=== PATIENT | male | born 1950 | race Caucasian/White ===

== ENCOUNTER 2019-04-10 18:48 | Emergency (ER) | payer BC, MEDICARE ==
[2019-04-10 19:02] VITALS: BP 126/73
[2019-04-10] MEDS ORDERED: TETANUS/DIPHTHERIA/PERTUSSIS 0.5 ML SYRINGE IM ONE (19:33)
--- NOTE | 2019-04-10 19:37 | ED Physician Documentation ---
History of Present Illness - Stated complaint Stated Complaint: RT FINGER VS DISPOSAL - Chief complaint Chief Complaint: Laceration - Additonal information Additional information: This is a 68-year-old male who presents after laceration to his right middle finger. Patient was in the kitchen and his accidentally bumped the garbage disposal switch, he pulled his finger out of the sink quickly but he did suffer a laceration to the nail on his right middle finger. He has not had tetanus booster in 25 years. He denies trauma elsewhere. He denies weakness or numbness. Review of Systems Constitutional: denies: Fever Skin: reports: Laceration (s) Immunocompromised: denies: Immunocompromised PD PAST MEDICAL HISTORY - Past Medical History Past Medical History: Yes Cardiovascular: High cholesterol Respiratory: None Endocrine/Autoimmune: None GI: None : None HEENT: None Psych: None Musculoskeletal: None Derm: Eczema - Past Surgical History Past Surgical History: No - Present Medications Home Medications: Ambulatory Orders Medication Instructions Recorded Confirmed Simvastatin 10/03/13 10/03/13 - Allergies Allergies/Adverse Reactions: Allergies Allergy/AdvReac Type Severity Reaction Status Date / Time Penicillins Allergy Unknown Unknown Verified 04/10/19 18:56 - Social History Does the pt smoke?: No Smoking Status: Never smoker Does the pt drink ETOH?: Yes Does the pt have substance abuse?: No - Immunizations Immunizations are current?: Yes - POLST Patient has POLST: No PD ED PE NORMAL - Vitals Vital signs reviewed: Yes - General General: Alert and oriented X 3, No acute distress - HEENT HEENT: Atraumatic - Cardiac Cardiac: RRR - Respiratory Respiratory: No respiratory distress - Abdomen Abdomen: Non distended - Extremities Extremities: Other (The right middle finger has a 1 cm laceration across the mid nail with a small amount of oozing. There is no crossing into the proximal nail matrix. No gross deformity. Sensation distally is intact. Remainder the hand is atraumatic and nontender) - Neuro Neuro: Alert and oriented X 3 - Psych Psych: Normal mood, Normal affect Results - Vitals Vitals: Vital Signs - 24 hr 04/10/19 18:56 Temperature 36.5 C Heart Rate 68 Respiratory 16 Rate Blood Pressure 126/73 O2 Saturation 98 Oxygen O2 Source Room air - Rads (name of study) XR right fingers Radiology: Other (No acute fracture or dislocation, no radioopaque foreign body) Procedures - Laceration (location) Finger right Distal Length in cm: 1 Wound type: Linear Neurovascular status: Sensory intact, Motor intact, Vascular intact Wound Preparation: Irrigated copiously NS Skin layer closure: Dermabond Other: Patient tolerated well, No complications, Neurovascular intact, Dressing applied, Tetanus booster given Complexity: Simple PD MEDICAL DECISION MAKING - ED course Complexity details: considered differential (Laceration, fracture, nailbed injury, dislocation) ED course: Pt presents with laceration to the distal right middle finger nail. finger is neurovascularly intact and the laceration is shallow, extending just through the nail. It does not involve the nail fold or the matrix. After thorough cleaning it and discussing options of nail removal or skin glue, we decided on skin glue since the laceration is thin, small, and does not involve the fold or growth matrix. After repair a bandage was applied, wound care and follow up instr uctions reviewed. Tdap was updated. Patient was discharged in the care of his . Departure - Departure Disposition: 01 Home, Self Care Clinical Impression: Laceration Condition: Good Instructions: ED Laceration Ext Skin Glue Follow-Up: Ruby Tucker ARNP [Primary Care Provider] - As Needed Comments: You were seen today because you lacerated your nail. We do not see signs of any broken bones in the finger. Please keep a simple bandage over the nail, it is okay to run water over it and to wash your hands, but try not to scrub at the area. If you develop signs of infection such as increasing swelling of your finger or redness streaking up your arm return to the emergency department. The skin glue will naturally slough off over time. You may take Tylenol for discomfort and ice the area if needed. Discharge Date/Time: 04/10/19 21:25
--- NOTE | 2019-04-10 20:21 | XRAY Report ---
Reason: Garbage disposal laceration to distal middle fing Procedure Date: 04/10/2019 Accession Number: [id number] / [id number] Procedure: XR - Finger(s) RT CPT Code: FULL RESULT: EXAM: RIGHT THIRD DIGIT RADIOGRAPHY EXAM DATE: 04/10/2019 07:47 PM. CLINICAL HISTORY: Garbage disposal laceration to distal middle fing. COMPARISON: None. TECHNIQUE: 3 views. FINDINGS: Bones: Normal. No fracture or bone lesion. Joints: Normal. No subluxations. Soft Tissues: Normal. No soft tissue swelling. IMPRESSION: No acute fractures or malalignment. [facility]
== END 2019-04-10 21:25 | disposition home or self-care (01) ==
LOC: ED 18:48
DX: S61.312A Laceration without foreign body of right middle finger with damage to nail, initial encounter (principal); W31.89XA Contact with other specified machinery, initial encounter; Y93.E9 Activity, other interior property and clothing maintenance; Y92.000 Kitchen of unspecified non-institutional (private) residence as the place of occurrence of the external cause; Z23 Encounter for immunization
CPT/HCPCS: 12001; 73140; 90471

== ENCOUNTER 2020-06-24 08:08 | Outpatient (CLI) | payer MEDICARE, OTHER ==
[2020-06-24] MEDS ORDERED: GADOBUTROL 7.5 MMOL/7.5 ML VIAL ONE (08:54)
[2020-06-24] MEDS ORDERED: GADOBUTROL 7.5 MMOL/7.5 ML VIAL IVP ONE (11:28)
--- NOTE | 2020-06-30 05:40 | MRI Report ---
PROCEDURE: Abdomen W/WO INDICATIONS: LESION OF LIVER CONTRAST: IV CONTRAST: Gadavist ml: 7 TECHNIQUE: Coronal ultra fast SE, axial 2D spoiled GE in- and [id number]; axial breath-hold T2 fast SE. Dynam ic axial ultra fast GE during the administration of contrast; post-contrast coronal ultra fast GE or 2D spoiled GE with fat saturation from the hepatic dome to the iliac crests. Optional diffusion weig hted imaging and ADC may be performed. COMPARISON: Prior chest CT with contrast 10/03/2013 which includes a significant portion of the liver. FINDINGS: Image quality: Excellent. Lung bases: No basal pleural effusions. Heart size is normal. Solid organs: Liver and spleen are normal in size and enhancement. Note is made of 2 sharply demarc ated rounded slightly lobulated structures within the right posterior hepatic segment inferiorly with imaging characteristics representing cysts. These measure up to 1.5 x 1.7 cm at the inferior margin of the right posterior hepatic segment, subcapsular, and also more superiorly within the liver parenc hyma at the axial level of the upper third of the right kidney, also subcapsular, and showing no evid ence of rim or internal enhancement, for each. Gallbladder Biliary system is non dilated. Pancr eas is normal in morphology. No adrenal nodules. Both kidneys demonstrate normal size and enhanceme nt, without hydronephrosis. Nodes and vessels: No retroperitoneal or mesenteric adenopathy by size criteria. Aorta and inferior vena cava are normal in size. Bowel and peritoneum: Unenhanced bowel loops are normal in caliber. No free fluid. Bones and soft tissues: No ventral hernias. Bone marrow is normal in overall signal. IMPRESSION: Benign appearing hepatic cysts are present each having a maximal dimension of approximately 1.7 cm wi thin the right posterior hepatic segment inferiorly at and below the level of the upper third of the right kidney. No additional liver abnormalities seen. No follow-up is recommended. Note: The most recent available comparison study that includes a portion of the liver is 10/03/2013, CT pulmonary angiogram. If there is an outside examination that is more recent and has raised concern f or some abnormality within the liver I would be happy to review that case and generate an addendum to this report. Reviewed by: Richard Mcadams MD on 06/29/2020 5:01 PM [facility] Approved by: Richard Mcadams MD on 06/29/2020 5:01 PM [facility] Station ID: [id number]
== END 2020-06-24 08:09 | disposition home or self-care (01) ==
LOC: DI 08:08
PROVIDERS: ATTEND Registered Nurse
DX: K76.89 Other specified diseases of liver (principal)
CPT/HCPCS: 74183; A9585

== ENCOUNTER 2020-06-27 13:54 | Outpatient (CLI) | payer MEDICARE, OTHER ==
--- NOTE | 2020-06-27 16:16 | XRAY Report ---
PROCEDURE: Finger(s) LT INDICATIONS: PAIN IN LEFT FINGER TECHNIQUE: PA view of the hand and 2 views of the left small finger obtained. COMPARISON: None. FINDINGS: Bones: There is a comminuted, minimally displaced fracture of the shaft of the fifth proximal phalanx . On lateral view, the fracture appears to have increased displacement with overriding of fracture fr agments. No definite intra-articular extension is seen. No additional fracture is seen. Degenerative changes are seen at the first carpometacarpal joint and the triscaphe joint. No suspicious bony lesio ns. Soft tissues: No suspicious soft tissue calcifications. Soft tissue edema is seen in the fifth digi t. IMPRESSION: Comminuted, displaced fracture of the shaft of the fifth proximal phalanx with overriding of fracture fragments seen on lateral view. Reviewed by: Angel Ashton MD on 06/27/2020 4:15 PM PST Approved by: Angel Ashton MD on 06/27/2020 4:15 PM PST Station ID: [id number]
== END 2020-06-27 23:59 | disposition home or self-care (01) ==
LOC: DI.S 13:54
PROVIDERS: ATTEND Physician Assistant Medical
DX: S62.617A Displaced fracture of proximal phalanx of left little finger, initial encounter for closed fracture (principal)

== ENCOUNTER 2022-01-31 08:57 | Outpatient (CLI) | payer OTHER, MEDICARE ==
[2022-01-31 14:55] LABS: ALBUMIN 3.9 g/dL (3.2-5.5); ALBUMIN/GLOBULIN RATIO 1.3 (1.0-2.2); ALKALINE PHOSPHATASE 47 IU/L (42-121); ALT ALANINE AMINOTRANSFERASE 18 IU/L (10-60); AST ASPARTATE AMINOTRANSFERASE 26 IU/L (10-42); BILIRUBIN,TOTAL 0.7 mg/dL (0.2-1.0); BUN - BLOOD UREA NITROGEN 18 mg/dL (6-20); CALCIUM 9.2 mg/dL (8.5-10.3); CARBON DIOXIDE - CO2 30 mmol/L (21-32); CHLORIDE 101 mmol/L (101-111); CHOL/HDL RATIO 5.5 (<5.0); CHOLESTEROL 263 mg/dL; GFR - MDRD 74 (>89); GLUCOSE 87 mg/dL (70-100); HDL CHOLESTEROL 48 mg/dL; LDL CHOLESTEROL,CALCULATED 189 mg/dL; LDL/HDL RATIO 3.9 (<3.6); POTASSIUM 4.2 mmol/L (3.5-5.0); SODIUM 137 mmol/L (135-145); TOTAL PROTEIN 6.8 g/dL (6.7-8.2); TRIGLYCERIDES 129 mg/dL; VLDL CHOLESTEROL 26 mg/dL
[2022-01-31 15:32] LABS: PSA TOTAL 0.007 ng/mL (0.000-2.000)
== END 2022-01-31 08:58 | disposition home or self-care (01) ==
LOC: LAB.S 08:57
PROVIDERS: ATTEND Registered Nurse
DX: E78.5 Hyperlipidemia, unspecified (principal); Z85.46 Personal history of malignant neoplasm of prostate
CPT/HCPCS: 36415; 80053; 80061; 83721; 84153

== ENCOUNTER 2022-02-06 08:00 | Outpatient (CLI) | payer OTHER, MEDICARE ==
[2022-02-07 12:54] LABS: FECAL OCCULT BLOOD (FIT) NEGATIVE (NEGATIVE)
== END 2022-02-06 23:59 | disposition home or self-care (01) ==
LOC: LAB.R 08:00
PROVIDERS: ATTEND Registered Nurse
DX: Z12.11 Encounter for screening for malignant neoplasm of colon (principal)
CPT/HCPCS: 82274